=== PATIENT | male | born 1975 | race Caucasian/White ===

== ENCOUNTER 2016-07-03 12:33 | Observation (INO) ==
[2016-07-03] MEDS ORDERED: Aspirin 81 MG TAB.CHEW PO ONE (12:59)
[2016-07-03] MEDS ORDERED: Nitroglycerin 0.4 MG TAB.SUBL SL ONE (12:59)
--- NOTE | 2016-07-03 13:03 | Emergency Department Note ---
Disposition Clinical Impression: Chest pain Qualifiers: Chest pain type: unspecified Qualified Code(s): R07.9 - Chest pain, unspecified Disposition: Admitted As Inpatient Condition: Good Time of Disposition: 16:03 Chest Pain HPI - General Chief Complaint: ED Chest Pain Stated Complaint: CHEST PAIN Time Seen by Provider: 07/03/16 12:50 Source: patient Limitations: no limitations Vital Signs Reviewed: Yes Nursing Notes Reviewed: Yes - History of Present Illness HPI Narrative: 41-year-old male past history hypertension presents ED for chest pain. States is been ongoing constant chest pain in the center of his chest for past 3 days. He denies any radiation of the pain. Reports as if someone is digging a bat into his chest. Denies any associated symptoms such as diaphoresis, shortness of breath, or vomiting. Sometimes it is worse with exertion. Reports recently being evaluated at [facility] for similar symptoms. At that time morphine and nitro did help relieve the pain. He denies any further workup such as a stress test or heart catheterization. Denies any recent illness, fever, cough, shortness of breath, nausea, vomiting. Reports a strong family history and his father with a bypass age 45. Duration: constant Onset: during rest Pain Location: left chest Severity: moderate Severity scale (1-10): 8 Pain Radiation: none Improves with: nothing Worsens with: nothing Associated symptoms: Reports: dyspnea. Denies: nausea, vomiting, diaphoresis, palpitations, fever Treatments prior to arrival chest pain: none - Related Data Home Medications Medication Instructions Recorded Confirmed TraZODone 50 mg PO HS PRN 07/03/16 07/03/16 Allergies Allergy/AdvReac Type Severity Reaction Status Date / Time No Known Allergies Allergy Verified 07/23/15 18:14 All systems ED: reviewed and negative except as stated. Constitutional: Denies: fever, chills Cardiovascular: Reports: chest pain. Denies: palpitations, dyspnea on exertion Respiratory: Denies: cough, dyspnea Gastrointestinal: Denies: abdominal pain, nausea, vomiting, diarrhea Genitourinary: Denies: urgency, dysuria Integumentary: Denies: rash, abrasion Neurological: Denies: headache, weakness Chest Pain PMH - Past Medical History Medical history: Reports: hypertension Psychiatric history: Reports: no psych history - Social History Smoking Status: Never smoker Alcohol use: Reports: none Drug use: Reports: none Physical Exam - General Limitations: no limitations General appearance: alert, in no apparent distress, anxious, obese - Head Head exam: atraumatic, normocephalic, normal inspection - Eye Eye exam: Present: normal appearance, PERRL, EOMI - ENT ENT exam: normal exam, normal oropharynx, mucous membranes moist - Neck Neck exam: Present: normal inspection, full ROM, trachea midline - Chest Chest inspection: Present: normal inspection, symmetric chest wall rise - Respiratory Respiratory exam: Present: normal lung sounds bilaterally. Absent: respiratory distress, wheezes - Cardiovascular Cardiovascular exam: Present: regular rate, normal rhythm, normal heart sounds - Abdominal Exam Abdominal exam: Present: soft, Non-Tender, normal bowel sounds. Absent: tenderness, distention, guarding, rebound, rigidity - Extremities Exam Extremities exam: Present: normal inspection, full ROM, normal capillary refill. Absent: tenderness, pedal edema, calf tenderness - Neurological Exam Neurological exam: Present: alert, oriented X3 - Psychiatric Psychiatric exam: Present: normal affect, normal mood - Skin Skin exam: Present: warm, dry, intact, normal color Course Course Narrative: 41-year-old male past medical history hypertension, obesity presents to the ED for recurrent chest pain. Reports this has been ongoing for past 3 days, he was recently admitted for similar things at [facility] however did not receive a full cardiac workup. He has been having constant external chest pain without radiation. Blood pressure here stable at 144/94 He is not describing a tearing chest pain radiating to the back suggesting aortic complications. His BP has been well controlled and is normal here. Heart is regular rate and rhythm. Bilateral radial pulses without significant difference. Will workup for ACS. Patient is in agreement with plan. - Reevaluation(s) Reevaluation #1: Troponin 0.2. Labs are otherwise unremarkable. He continues to have recurrent chest pain despite 2 doses of SL Nitro along with tylenol and GI cocktail. EKG shows some nonspecific ST-T changes. HEART score is 3 however due to his lack of outpatient follow up and strong cardiac family history recommend admission for chest pain R/O ACS. He has no prior LHC or stress test. Impression is chest pain R/O ACS. Time: 16:55 - Consultations Consultation #1: Spoke with Shelley, hospitalistbrenna to admit for chest pain r/o ACS Time: 16:04 Vital Signs Temperature 97.2 F L 07/03/16 12:37 Pulse Rate 90 07/03/16 12:37 Respiratory Rate 18 07/03/16 12:37 Blood Pressure 144/94 07/03/16 12:37 O2 Sat by Pulse Oximetry 97 07/03/16 12:37 Temperature 97.2 F L 07/03/16 12:37 Pulse Rate 93 07/03/16 16:30 Respiratory Rate 19 07/03/16 16:55 Blood Pressure 153/85 07/03/16 16:55 O2 Sat by Pulse Oximetry 98 07/03/16 16:30 Oxygen Delivery Oxygen Delivery Room Air Chest Pain - Medical Records Medical records reviewed: Yes I reviewed the patient's medical records. - Lab Data Lab results reviewed: Yes I reviewed the patient's lab results. Result diagrams: 07/03/16 13:08 07/03/16 13:08 Lab Results 07/03/16 07/03/16 07/03/16 Range/Units 13:08 13:08 13:08 WBC 8.2 (4.3-11.1) K/mcL RBC 4.93 (4.19-5.50) M/mcL Hgb 15.4 (12.9-16.9) g/dL Hct 44.4 (37.5-50.1) % MCV 90.1 (83.0-100.0) fL MCH 31.2 (28.0-33.3) pg MCHC 34.7 (31.6-35.5) g/dL RDW 12.7 (11.5-14.5) % Plt Count 236 (140-400) K/mcL MPV 9.6 (9.4-12.4) fL Immature Gran % 0.4 (0-4) % Seg Neutrophils % 63.5 % Lymphocytes % 28.6 % Monocytes % 5.9 % Eosinophils % 1.2 % Basophils % 0.4 % Neutrophils # 5.2 (1.6-8.9) K/mcL Lymphocytes # 2.3 (0.6-4.6) K/mcL Monocytes # 0.5 (0.0-1.3) K/mcL Eosinophils # 0.1 (0.0-0.6) K/mcL Basophils # 0.0 (0.0-0.2) K/mcL Sodium 138 (136-145) mEq/L Potassium 4.6 H (3.5-4.5) mEq/L Chloride 104 (98-109) mEq/L Carbon Dioxide 27 (19-29) mEq/L BUN 15 (8-26) mg/dL Creatinine 1.13 (0.72-1.25) mg/dL Est GFR ( Amer) > 60 (> 60) Est GFR (Non-Af Amer) > 60 (> 60) BUN/Creatinine Ratio 13 (6-26) Glucose 99 (70-99) mg/dL Calculated Osmolality 287 (280-300) Calcium 9.1 (8.6-10.8) mg/dL Troponin I 0.02 (0-0.03) ng/mL - Radiology Data Radiology results reviewed: Yes I reviewed the patient's radiology results. Chest X-Ray 07/03/16 12:59 IMPRESSION: No acute cardiopulmonary disease. D/ / 07/03/2016 14:12:09 Shaheed Donaldson MD / traci Interpreting Provider: Shaheed Donaldson MD - EKG Data EKG attestation: Yes I reviewed and interpreted this EKG. EKG shows normal: sinus rhythm Rate: normal Rhythm: NSR When compared to previous EKG there are: no significant changes Interpretation: nonspecific ST-T wave changes Heart Score - Score History: Slightly Suspicious EKG: Non Specific repolarisation Disturbance Age: Less than 45 Risk Factors: Equal/Greater than 3 risk factor or history of atherosclerotic disease Troponin: Less than normal limit HEART Score Total: 3 Attestation Statement - Attestation Attestation: I examined this patient and my medical decision-making was reviewed with the COMMUNICATIONS STRATEGIST/PA/Advanced Practice Nurse/Resident Physician. I agree with the documented findings, disposition and treatment plan as described except to the extent set forth below. 41-year-old male. CT because her throat is pink. He has had chest pain nonstop for the past 3 days. Cannot describe or relate any provoking factors. He was recently admitted overnight to another facility and discharged in the morning with a diagnosis of gastritis. Pain is continued prompting him to come to the ED. He denies exertional provocation samples. Pain continues he wanted to rest. No diaphoresis but does complain of nausea and dyspnea. Patient's father had an OR at age 45. He is a nonsmoker with no known risk factors. Morbidly obese male in no apparent distress. Oropharynx is clear mucous membranes moist. Neck supple. Chest clear to auscultation bilaterally. Chest wall is nontender. Cardiac exam regular without rubs or gallops. Abdomen soft nondistended nontender Extremities warm and dry without asymmetric edema. Initial EKG with nonspecific changes. Chest x-ray and labs are unremarkable. He received nitroglycerin sublingual with mild improvement of his pain. He is very anxious with a sense of impending doom. He is very fearful of going home concerned that he is having a cardiac crisis. Hospitalist has agreed to admit to the hospital for further observation and workup.
[2016-07-03 13:23] LABS: Basophils % 0.4 %; Eosinophils # 0.1 K/mcL (0.0-0.6); Eosinophils % 1.2 %; Hematocrit 44.4 % (37.5-50.1); Hemoglobin 15.4 g/dL (12.9-16.9); Immature Granulocytes % 0.4 % (0-4); Lymphocytes # 2.3 K/mcL (0.6-4.6); Lymphocytes % 28.6 %; Mean Corpuscular HGB Conc 34.7 g/dL (31.6-35.5); Mean Corpuscular Hemoglobin 31.2 pg (28.0-33.3); Mean Corpuscular Volume 90.1 fL (83.0-100.0); Mean Platelet Volume 9.6 fL (9.4-12.4); Monocytes # 0.5 K/mcL (0.0-1.3); Monocytes % 5.9 %; Neutrophils # 5.2 K/mcL (1.6-8.9); Platelet Count 236 K/mcL (140-400); Red Blood Count 4.93 M/mcL (4.19-5.50); Red Cell Distribution Width 12.7 % (11.5-14.5); Segmented Neutrophils % 63.5 %
[2016-07-03 13:34] LABS: BUN/Creatinine Ratio 13 (6-26); Blood Urea Nitrogen 15 mg/dL (8-26); Calcium 9.1 mg/dL (8.6-10.8); Carbon Dioxide 27 mEq/L (19-29); Chloride 104 mEq/L (98-109); Glucose 99 mg/dL (70-99); Osmolality,Calculated 287 (280-300); Potassium 4.6 mEq/L (3.5-4.5); Sodium 138 mEq/L (136-145); eGFR For African Americans > 60 (> 60); eGFR For Non-African Americans > 60 (> 60)
[2016-07-03] MEDS ORDERED: GI Cocktail 40 ML EACH PO ONE (14:21)
[2016-07-03] MEDS: Nitroglycerin 0.4 MG TAB.SUBL SL PRN ×2 (15:00→21:27)
[2016-07-03] MEDS ORDERED: *HR* Morphine 2 MG/ML SYRINGE IVP ONE (17:33)
[2016-07-03] MEDS ORDERED: Naloxone 0.4 MG/ML INJ IVP PRN (21:25)
[2016-07-03] MEDS ORDERED: Pantoprazole 40 MG VIAL IVP STA (21:25)
[2016-07-03] MEDS ORDERED: Mag Hydrox/Al Hydrox/Simeth 30 ML UDC PO PRN (21:25)
[2016-07-03] MEDS ORDERED: Benzonatate 100 MG CAPSULE PO PRN (21:25)
[2016-07-03] MEDS ORDERED: *HR* Promethazine 25 MG/ML VIAL IVP PRN (21:25)
[2016-07-03] MEDS ORDERED: *HR* Metoprolol 5 MG/5 ML VIAL IVP PRN (21:25)
[2016-07-03] MEDS ORDERED: Acetaminophen 325 MG TABLET PO PRN (21:25)
[2016-07-03] MEDS ORDERED: 0.9 % Sodium Chloride 1,000 ML IVC SCH (21:30)
[2016-07-03] MEDS: Melatonin 3 MG TABLET PO SCH (21:58)
[2016-07-03] MEDS: *HR* LORazepam 0.5 MG TABLET PO SCH (21:59)
[2016-07-03] MEDS: *HR* Morphine 2 MG/ML SYRINGE IVP PRN (22:03)
[2016-07-03] MEDS: *HR* Enoxaparin 30 MG/0.3 ML SYRINGE SQ SCH (22:07)
[2016-07-03 22:45] LABS: INR 1.2; Prothrombin Time 12.6 Seconds (9.4-12.1)
[2016-07-03 22:47] LABS: VBG HCO3 29.2 mEq/L (21-27); VBG PH 7.42 pH Units (7.32-7.42)
[2016-07-03 22:48] LABS: Activated Partial Thrombo Time 31.1 Seconds (26.0-36.0)
[2016-07-03 22:54] LABS: Phosphorous 3.9 mg/dL (2.3-4.7)
[2016-07-03 22:58] LABS: Ionized Calcium 1.12 mmol/L (1.15-1.35)
[2016-07-04] MEDS: *HR* OxyCODONE Immed Rel 5 MG TABLET PO PRN ×3 (00:27→21:06)
[2016-07-04 00:49] LABS: ABG Base Excess 1.7 mEq/L (-2.0 to 3.0); ABG HCO3 26.6 mEQ/L (21-27); ABG Oxygen Saturation 94 % (95-98); ABG PCO2 42 mmHg (35-45); ABG PH 7.41 pH Units (7.32-7.45); ABG PO2 72 mmHg (85-104); ABG TCO2 27.9 mEq/L (20-26); Blood Gas FiO2 21 %
[2016-07-04] MEDS: traZODone 50 MG TABLET PO PRN ×2 (03:27→21:06)
--- NOTE | 2016-07-04 03:48 | Internal Med History&Physical ---
<Roma Goyal - Last Filed: 07/04/16 04:15> Date of Encounter: 07/04/16 Time of Encounter: 03:46 Assessment and Plan (1) Chest pain Current visit: Yes Status: Acute Patient presented with constant chest pain for 3 days. EKG shows normal sinus rhythm, no ST segment elevation or T wave inversions suggestive of ischemia. However, due to patient's obesity and family history, ACS rule out was appropriate. 1. Trend troponins 2. ECHO 3. Pharmacological stress test 4. Nitro for chest pain, Morphine for chest pain not resolving 5. Start ASA, b-leno and statin 6. Cardiac monitoring Qualifiers: Chest pain type: unspecified Qualified Code(s): R07.9 - Chest pain, unspecified (2) Hypoxia Current visit: Yes Status: Acute Patient with O2 saturation of 94% on RA with no history of pulmonary disease. He is obese and the hypoxia could be secondary to poor inspiratory effort. Will do a atrial blood gas. Patient will likely require further testing including PFT and sleep study looking for obesity hyperventilation syndrome or YASH. 1. Continuous pulse ox 2. Supplemental O2 as needed 3. Atrial blood gas (3) History of hypertension Current visit: Yes Status: Acute Patient reports history of HTN treated with medications. He has not been taking blood pressures here. Initial blood pressure here were in the 150s/86 and then came down to 130/82. Will monitor blood pressure. Patient may require starting medication for blood pressure management if indicated. 1. Monitor blood pressure (4) Obesity, Class III, BMI 40-49.9 (morbid obesity) Current visit: Yes Status: Acute Patient with significatn obesity and chest pain. He does not smoke. Will check labs to evaluate for a metabolic syndrome picture or other risk factors associated with his obesity. 1. A1c 2. Lipid panel (5) DVT prophylaxis Current visit: Yes Status: Acute Lovenox for DVT prophylaxis. Internal Medicine - H&P: HPI Admitted From: Home Plans for Post Hospital Care: Home History of present illness: Mr. Rodriguez is a 41 year old male with PMH of HTN, chronic back pain and obesity who presents with 3 days of chest pain. Patient reports that 3 days ago he had a sharp, shooting pain in the center of his chest 3 days ago that woke him from sleep. He tried taking ibuprofen and trazadone to go back to sleep and then a few hours later the same sharp pain woke him up again from sleep. The next morning he was driving and he had the sharp pain and crushing pressure that radiated down his left arm with associated diaphoresis and nausea. He went to an outside facility where he was initially admitted for chest pain. He says that they did not do any testing and was told it was gas. He reports that he tried to deal with the pain but could not so he came to the [place] ED. He currently says the pain is located in the center of his chest and describes it as a deep pressure with occasional sharp shooting pains. The pain can get worse with exertion. When the pain is really bad he reports associated radiation to the left sie of his chest, nausea, shortness of breath and diaphoresis. Patient denies fever/chills, headache, changes in vision, abdominal pain, changes in bowel or bladder function He denies any history of similar pain but reports that he has a strong family history of cardiac disease including a brother who had a cardiac bypass at age 45. Patient reports a 2 week episode of BL LE edema several months ago - he describes significant pitting edema. In our ED, patient was afebrile. HR, BP and RR all within normal limits. Oxygenation saturation was 94% on RA. He had an initial troponin of 0.02, remainder of labs within normal limits. He was given nitro x 2, tylenol and a GI cocktail and reported minimal relief. On exam, patient was awake and alert, in no acute distress. He was laying comfortably on the bed. Heart was regular rate and rhythm, no mumrus/rubs/ gallops. Lungs were clear to auscultation bilaterally with no crackles or wheezing. Patient is obese. Abdomen soft, non-tender. No pedal edema. Pain is not reproducible with palpation or with deep breaths. Past Med Surg Social Fam HX - Past Medical History Medical history: hypertension Psychiatric history: no psych history - Past Surgical History Surgical History: no surgical history - Social History Smoking Status: Never smoker Smokeless Tobacco Status: No Alcohol use: none Drug use: none - Family History Father Living Status: Still Living Hx Family Cardiac Disorders: Yes (open heartx3) Internal Medicine - H&P: Meds TraZODone 50 mg PO HS PRN 07/03/16 [History] Allergies No Known Allergies Allergy (Verified 07/23/15 18:14) All Systems PM: A 10-system review of systems was performed and is negative for pertinent findings except as documented above in the HPI. - Constitutional Constitutional: no chills, no fever(s), no lethargy, no weakness - EENT Eyes: no blurry vision, no change in vision - Cardiovascular Cardiovascular ROS IM: chest pain, diaphoresis, no dyspnea on exertion, no edema , no irregular heart rhythm, no lightheadedness, no palpitations, no syncope - Respiratory Respiratory: dyspnea, no cough, no wheezing, no chest congestion - Gastrointestinal Gastrointestinal: no abdominal pain, no constipation, no diarrhea, no heartburn , no hematochezia, no melena, no nausea, no vomiting - Genitourinary Genitourinary ROS male: no dysuria, no urinary frequency, no urinary hesitancy, no urinary incontinence - Musculoskeletal Musculoskeletal ROS IM: back pain - Neurological Neurological ROS: no confusion, no dizziness, no headache(s), no lack of coordination, no loss of vision - Constitutional Vitals: Temp Pulse Resp BP Pulse Ox 98.0 F 84 16 116/72 93 L 07/04/16 03:33 07/04/16 03:33 07/04/16 03:33 07/04/16 03:33 07/04/16 03:33 General appearance: Present: A&O X 3, no acute distress, obese, answers questions appropriately - Head Head exam: Present: atraumatic, normal inspection, normocephalic - Eye Eye exam: Present: EOMI, normal appearance - ENT ENT exam: Present: mucous membranes moist, normal exam - Respiratory Respiratory exam: Present: CTAB. Absent: prolonged expiratory phase, respiratory distress, wheezes - Cardiovascular Cardiovascular exam: Present: RRR - GI/Abdominal GI/Abdominal exam: Present: normal bowel sounds, soft. Absent: guarding, rebound, rigid, tenderness - Extremities Exam Extremities exam: Present: full ROM. Absent: pedal edema Internal Med - H&P Results - Labs CBC & Chem 7: 07/03/16 13:08 07/03/16 13:08 Labs: Cardiac Enzymes 07/03/16 Range/Units 22:28 Troponin I 0.00 (0-0.03) ng/mL - ABG Interpretation ABG results: 07/03/16 07/04/16 22:28 00:35 ABG pH 7.41 ABG pCO2 42 ABG pO2 72 L ABG HCO3 26.6 ABG Total CO2 27.9 H ABG O2 Saturation 94 L ABG Base Excess 1.7 VBG pH 7.42 VBG pCO2 45 VBG pO2 84 H VBG HCO3 29.2 H <Carlos Munoz - Last Filed: 07/04/16 05:37> Date of Encounter: 07/03/16 Time of Encounter: 21:00 Assessment and Plan (1) Chest pain, rule out acute myocardial infarction Current visit: Yes Status: Acute . (2) Chest pain with low risk of acute coronary syndrome Current visit: Yes Status: Acute . (3) Anxiety about health Current visit: Yes Status: Acute . (4) Anxiety as acute reaction to exceptional stress Current visit: Yes Status: Acute . (5) Primary snoring Current visit: Yes Status: Chronic . (6) Sleep disorder Current visit: Yes Status: Chronic . (7) Sleep disorder due to a general medical condition, insomnia type Current visit: Yes Status: Chronic . (8) Sleep disorder due to a general medical condition, hypersomnia type Current visit: Yes Status: Chronic . (9) Sleep disorder breathing Current visit: Yes Status: Chronic . (10) Reactive hypertension Current visit: Yes Status: Acute . (11) Morbid (severe) obesity due to excess calories Current visit: Yes Status: Chronic . (12) Hypoventilation associated with obesity Current visit: Yes Status: Acute . (13) Physical deconditioning Current visit: Yes Status: Chronic . (14) Hypoxia Current visit: Yes Status: Acute (15) Obesity, Class III, BMI 40-49.9 (morbid obesity) Current visit: Yes Status: Chronic (16) Hyperkalemia Current visit: Yes Status: Acute . (17) Dyspepsia and disorder of function of stomach Current visit: Yes Status: Acute . (18) Severe anxiety about hospitalization Current visit: Yes Status: Acute . Internal Medicine - H&P: HPI Chief complaint: Chest pain Admitted From: Emergency Dept History of present illness: Mr. Rodriguez is a 41 year old male no significant chronic medical concerns or treatments admitted to [facility] via the emergency department when he presented with a chief complaint of 3-days of unremitting chest pain. The patient was visited and interviewed and examined. I examined this patient and my medical decision-making was reviewed with the Resident Physician. For this encounter, I have reviewed the documentation, treatment plan, and medical decision making. I agree with the documented findings, disposition and treatment plan as described except to the extent set forth below. Cumulative laboratory and radiographic database was reviewed and considered and discussed. Given the patient's presenting concerns, past medical history, clinical findings and symptoms, he is admitted at this time to undergo further evaluation and disposition. Orders were written as per the computerized physician order processing specialist system........................ Past Med Surg Social Fam HX - Past Medical History Source: patient, old records reviewed Medical history: hypertension, other (Morbid obesity. Sleep disorder.) Psychiatric history: anxiety, other - Past Surgical History Surgical History: non-contributory - Social History Occupational status: unemployed Current living situation: Home - Independent Activity Level: Independent ambulation, Mostly sedentary Recent Out of Country Travel Within the Last 8 Weeks: No Exposure or Possible Exposure to Illness During Travel: No All Systems PM: A 10-system review of systems was performed and is negative for pertinent findings except as documented above in the HPI. - Constitutional Vitals: Temp Pulse Resp BP Pulse Ox 98.0 F 84 16 116/72 93 L 07/04/16 03:33 07/04/16 03:33 07/04/16 03:33 07/04/16 03:33 07/04/16 03:33 Internal Med - H&P Results - Labs CBC & Chem 7: 07/03/16 13:08 07/03/16 13:08 Labs: Cardiac Enzymes 07/03/16 Range/Units 22:28 Troponin I 0.00 (0-0.03) ng/mL Urine 07/04/16 Range/Units 04:00 Urine Color Yellow (Yellow) Urine Clarity Clear (Clear) Urine pH 5.5 (5.0-8.0) pH Units Ur Specific [place] 1.025 (1.010-1.025) Urine Protein Negative (Neg-Trace) mg/dL Urine Glucose (UA) Normal (Normal) mg/dL - ABG Interpretation ABG results: 07/03/16 07/04/16 22:28 00:35 ABG pH 7.41 ABG pCO2 42 ABG pO2 72 L ABG HCO3 26.6 ABG Total CO2 27.9 H ABG O2 Saturation 94 L ABG Base Excess 1.7 VBG pH 7.42 VBG pCO2 45 VBG pO2 84 H VBG HCO3 29.2 H - Impressions Vital Signs Temp Pulse Resp BP Pulse Ox 07/04/16 03:33 98.0 F 84 16 116/72 93 L 07/04/16 00:00 97.5 F L 101 14 130/82 94 L 07/03/16 20:24 97.3 F L 86 18 134/86 94 L 07/03/16 17:17 97.5 F L 73 18 153/113 92 L 07/03/16 16:55 19 153/85 07/03/16 16:30 93 153/85 98 07/03/16 14:16 74 20 127/73 93 L 07/03/16 13:25 74 10 147/107 95 07/03/16 12:53 80 18 129/101 96 07/03/16 12:37 97.2 F L 90 18 144/94 97 Intake and Output 07/03/16 07/03/16 07/04/16 15:59 23:59 07:59 Output Total 200 / 200 Balance -200 / -200 Output: Urine 200 / 200 Other: Weight 147.418 kg 145.15 kg 145.875 kg Patient Weight 07/04/16 23:59 Weight 145.875 kg Short CBC 07/03/16 Range/Units 13:08 WBC 8.2 (4.3-11.1) K/mcL Hgb 15.4 (12.9-16.9) g/dL Hct 44.4 (37.5-50.1) % Plt Count 236 (140-400) K/mcL Neutrophils # 5.2 (1.6-8.9) K/mcL BMP 07/03/16 Range/Units 13:08 Sodium 138 (136-145) mEq/L Potassium 4.6 H (3.5-4.5) mEq/L Chloride 104 (98-109) mEq/L Carbon Dioxide 27 (19-29) mEq/L BUN 15 (8-26) mg/dL Creatinine 1.13 (0.72-1.25) mg/dL Glucose 99 (70-99) mg/dL Calcium 9.1 (8.6-10.8) mg/dL Cardiac Enzymes 07/03/16 07/03/16 Range/Units 22:28 13:08 Troponin I 0.00 0.02 (0-0.03) ng/mL Urine 07/04/16 Range/Units 04:00 Urine Color Yellow (Yellow) Urine Clarity Clear (Clear) Urine pH 5.5 (5.0-8.0) pH Units Ur Specific [place] 1.025 (1.010-1.025) Urine Protein Negative (Neg-Trace) mg/dL Urine Glucose (UA) Normal (Normal) mg/dL 07/03/16 07/04/16 22:28 00:35 ABG pH 7.41 ABG pCO2 42 ABG pO2 72 L ABG HCO3 26.6 ABG Total CO2 27.9 H ABG O2 Saturation 94 L ABG Base Excess 1.7 VBG pH 7.42 VBG pCO2 45 VBG pO2 84 H VBG HCO3 29.2 H Abnormal lab results PT 12.6 Seconds (9.4-12.1) H 07/03/16 22:28 ABG pO2 72 mmHg (85-104) L 07/04/16 00:35 ABG Total CO2 27.9 mEq/L (20-26) H 07/04/16 00:35 ABG O2 Saturation 94 % (95-98) L 07/04/16 00:35 VBG pO2 84 mmHg (25-40) H 07/03/16 22:28 VBG HCO3 29.2 mEq/L (21-27) H 07/03/16 22:28 Potassium 4.6 mEq/L (3.5-4.5) H 07/03/16 13:08 Ionized Calcium 1.12 mmol/L (1.15-1.35) L 07/03/16 22:28 Urine Opiates Screen Positive ng/mL (Blgydv=765) H 07/04/16 04:00 Allergies Allergy/AdvReac Type Severity Reaction Status Date / Time No Known Allergies Allergy Verified 07/23/15 18:14 Laboratory Results WBC 8.2 K/mcL (4.3-11.1) 07/03/16 13:08 RBC 4.93 M/mcL (4.19-5.50) 07/03/16 13:08 Hgb 15.4 g/dL (12.9-16.9) 07/03/16 13:08 Hct 44.4 % (37.5-50.1) 07/03/16 13:08 MCV 90.1 fL (83.0-100.0) 07/03/16 13:08 MCH 31.2 pg (28.0-33.3) 07/03/16 13:08 MCHC 34.7 g/dL (31.6-35.5) 07/03/16 13:08 RDW 12.7 % (11.5-14.5) 07/03/16 13:08 Plt Count 236 K/mcL (140-400) 07/03/16 13:08 MPV 9.6 fL (9.4-12.4) 07/03/16 13:08 Immature Gran % 0.4 % (0-4) 07/03/16 13:08 Seg Neutrophils % 63.5 % 07/03/16 13:08 Lymphocytes % 28.6 % 07/03/16 13:08 Monocytes % 5.9 % 07/03/16 13:08 Eosinophils % 1.2 % 07/03/16 13:08 Basophils % 0.4 % 07/03/16 13:08 Neutrophils # 5.2 K/mcL (1.6-8.9) 07/03/16 13:08 Lymphocytes # 2.3 K/mcL (0.6-4.6) 07/03/16 13:08 Monocytes # 0.5 K/mcL (0.0-1.3) 07/03/16 13:08 Eosinophils # 0.1 K/mcL (0.0-0.6) 07/03/16 13:08 Basophils # 0.0 K/mcL (0.0-0.2) 07/03/16 13:08 PT 12.6 Seconds (9.4-12.1) H 07/03/16 22:28 INR 1.2 07/03/16 22:28 APTT 31.1 Seconds (26.0-36.0) 07/03/16 22:28 ABG pH 7.41 pH Units (7.32-7.45) 07/04/16 00:35 ABG pCO2 42 mmHg (35-45) 07/04/16 00:35 ABG pO2 72 mmHg (85-104) L 07/04/16 00:35 ABG HCO3 26.6 mEQ/L (21-27) 07/04/16 00:35 ABG Total CO2 27.9 mEq/L (20-26) H 07/04/16 00:35 ABG O2 Saturation 94 % (95-98) L 07/04/16 00:35 ABG Base Excess 1.7 mEq/L (-2.0 to 3.0) 07/04/16 00:35 VBG pH 7.42 pH Units (7.32-7.42) 07/03/16 22:28 VBG pCO2 45 mmHg (41-51) 07/03/16 22:28 VBG pO2 84 mmHg (25-40) H 07/03/16 22:28 VBG HCO3 29.2 mEq/L (21-27) H 07/03/16 22:28 Blood Gas Modality RA 07/04/16 00:35 Inspired O2 21 % 07/04/16 00:35 Sodium 138 mEq/L (136-145) 07/03/16 13:08 Potassium 4.6 mEq/L (3.5-4.5) H 07/03/16 13:08 Chloride 104 mEq/L (98-109) 07/03/16 13:08 Carbon Dioxide 27 mEq/L (19-29) 07/03/16 13:08 BUN 15 mg/dL (8-26) 07/03/16 13:08 Creatinine 1.13 mg/dL (0.72-1.25) 07/03/16 13:08 Est GFR ( Amer) > 60 (> 60) 07/03/16 13:08 Est GFR (Non-Af Amer) > 60 (> 60) 07/03/16 13:08 BUN/Creatinine Ratio 13 (6-26) 07/03/16 13:08 Glucose 99 mg/dL (70-99) 07/03/16 13:08 Calculated Osmolality 287 (280-300) 07/03/16 13:08 Calcium 9.1 mg/dL (8.6-10.8) 07/03/16 13:08 Ionized Calcium 1.12 mmol/L (1.15-1.35) L 07/03/16 22:28 Phosphorus 3.9 mg/dL (2.3-4.7) 07/03/16 22:28 Magnesium 2.0 mg/dL (1.6-2.6) 07/03/16 22:28 Troponin I 0.00 ng/mL (0-0.03) 07/03/16 22:28 Amylase 52 Units/L (25-125) 07/03/16 22:28 Lipase 38 Units/L (8-78) 07/03/16 22:28 Urine Color Yellow (Yellow) 07/04/16 04:00 Urine Clarity Clear (Clear) 07/04/16 04:00 Urine pH 5.5 pH Units (5.0-8.0) 07/04/16 04:00 Ur Specific [place] 1.025 (1.010-1.025) 07/04/16 04:00 Urine Protein Negative mg/dL (Neg-Trace) 07/04/16 04:00 Urine Glucose (UA) Normal mg/dL (Normal) 07/04/16 04:00 Urine Ketones Negative mg/dL (Negative) 07/04/16 04:00 Urine Blood Negative (Negative) 07/04/16 04:00 Urine Nitrite Negative (Negative) 07/04/16 04:00 Urine Bilirubin Negative (Negative) 07/04/16 04:00 Urine Urobilinogen Normal mg/dL (Normal) 07/04/16 04:00 Ur Leukocyte Esterase Negative (Negative) 07/04/16 04:00 Urine Opiates Screen Positive ng/mL (Omsvxg=198) H 07/04/16 04:00 Ur Barbiturates Screen Negative ng/mL (Buarpf=487) 07/04/16 04:00 Ur Phencyclidine Scrn Negative ng/mL (Cutoff=25) 07/04/16 04:00 Ur Amphetamines Screen Negative ng/mL (Bevxrb=3467) 07/04/16 04:00 U Benzodiazepines Scrn Negative ng/mL (Qzirlv=067) 07/04/16 04:00 Urine Cocaine Screen Negative ng/mL (Cutoff= 300) 07/04/16 04:00 U Marijuana (THC) Screen Negative ng/mL (Cutoff = 50) 07/04/16 04:00 Impressions Chest X-Ray 07/03/16 12:59 IMPRESSION: No acute cardiopulmonary disease. D/ / 07/03/2016 14:12:09 Shaheed Donaldson MD / traci Interpreting Provider: Shaheed Donaldson MD - Attending Attestation My signature below is to certify that this patient is under my care and that I, or the Resident Physician working with me, has had a [id number] encounter with this patient. Plan of care has been reviewed and discussed in detail with the patient. Questions addressed. Advance care directive discussion briefly addressed. Patient does not declare any restrictions at this time. Outpatient medication schedules will be reviewed, confirmed and facilitated as appropriate. Reconciliation of home treatments including adjustments, substitutions and reintroduction into the treatment regimen will address necessary maintenance therapies for chronic pre-existing medical conditions. (He currently only declares trazodone as his ongoing medication utilized as needed for insomnia. He was also previously prescribed Lexapro to address his anxiety and depression but he discontinued this following completing only a months treatment and did not seek refill. Recommendation for outpatient referral to mental health outpatient clinic will be considered.) Smoke cessation counseling briefly addressed. The patient declares that he is a nonsmoker. Hospital course will be dependent on clinical findings, treatment response and potential consultative interventions. The patient is at risk for further acute clinical decline and morbidity given his presenting chief complaints and comorbidities. Condition is serious. Prognosis is cautiously optimistic. CODE STATUS is full.
[2016-07-04 04:17] LABS: Bilirubin,Urine Negative (Negative); Blood,Urine Negative (Negative); Clarity,Urine Clear (Clear); Color,Urine Yellow (Yellow); Glucose,Urine (UA) Normal (Normal); Ketones,Urine Negative (Negative); Leukocyte Esterase,Urine Negative (Negative); Nitrite,Urine Negative (Negative); PH,Urine 5.5 pH Units (5.0-8.0); Protein,Urine Negative (Neg-Trace); Specific Gravity,Urine 1.025 (1.010-1.025); Urobilinogen,Urine Normal (Normal)
[2016-07-04 04:36] LABS: Amphetamine Screen,Urine Negative ng/mL (Cutoff=1000); Barbiturate Screen,Urine Negative ng/mL (Cutoff=200); Benzodiazepines Screen,Urine Negative ng/mL (Cutoff=200); Cannabinoid Screen,Urine Negative ng/mL (Cutoff = 50); Cocaine Screen,Urine Negative ng/mL (Cutoff= 300); Opiate Screen,Urine Positive ng/mL (Cutoff=300); Phencyclidine Screen,Urine Negative ng/mL (Cutoff=25)
[2016-07-04] MEDS ORDERED: Calcium Gluconate 1,000 MG in D5% in Water 100 ML IVPB ONE (05:04)
[2016-07-04 05:47] LABS: Alanine Aminotransferase 60 Units/L (0-55); Albumin 3.3 g/dL (3.5-5.0); Alkaline Phosphatase 59 Units/L (38-126); Aspartate Amino Transferase 36 Units/L (5-34); BUN/Creatinine Ratio 17 (6-26); Bilirubin,Total 0.4 mg/dL (0.2-1.2); Blood Urea Nitrogen 18 mg/dL (8-26); C-Reactive Protein 16 mg/L (Less than 5); Calcium 8.5 mg/dL (8.6-10.8); Carbon Dioxide 26 mEq/L (19-29); Chloride 106 mEq/L (98-109); Chol/HDL Ratio 6.5 (0-4.9); Cholesterol 202 mg/dL (< 200); Globulin 3.3 g/dL (2.4-3.5); Glucose 119 mg/dL (70-99); HDL Cholesterol 31 mg/dL (40-59); LDL Cholesterol,Calculated 120 mg/dL (0-99); Osmolality,Calculated 293 (280-300); Potassium 4.3 mEq/L (3.5-4.5); Sodium 140 mEq/L (136-145); Total Protein 6.6 g/dL (6.0-8.3); Triglycerides 254 mg/dL (< 150); eGFR For African Americans > 60 (> 60); eGFR For Non-African Americans > 60 (> 60)
[2016-07-04 05:51] LABS: Hemoglobin A1C 5.1 %
[2016-07-04] MEDS: *HR* Enoxaparin 30 MG/0.3 ML SYRINGE SQ SCH ×2 (06:35→18:27)
[2016-07-04] MEDS: *HR* Morphine 2 MG/ML SYRINGE IVP PRN ×2 (06:41→18:27)
[2016-07-04] MEDS ORDERED: Regadenoson 0.4 MG/5 ML SYRINGE IVP ONE (06:49)
[2016-07-04 07:34] LABS: Thyroid Stimulating Hormone 1.454 mcIU/mL (0.350-4.840)
[2016-07-04] MEDS: Famotidine 20 MG TABLET PO SCH ×2 (08:15→21:06)
[2016-07-04] MEDS: *HR* LORazepam 0.5 MG TABLET PO SCH ×4 (08:15→21:06)
[2016-07-04] MEDS: Aspirin 81 MG TAB.CHEW PO SCH (08:15)
--- NOTE | 2016-07-04 12:45 | Event Note ---
Date of Encounter: 07/04/16 Time of Encounter: 12:15 Patient seen and examined. On examination, patient resting supine in bed. Patient is endorsing constant chest pressure. He denies shortness of breath at this time. On examination, chest pain is not reproducible with palpation at this time. Patient's lungs are clear to auscultation bilaterally with good aeration. Chest x-ray negative. Urinalysis negative. Tox screen positive for opiates, OARRS report without current prescriptions. Mild hypotension noted, will continue to monitor. Patient requesting food, able to until midnight. Echocardiogram still pending. Second day of the stress test will be tomorrow and clinical outcomes depending upon stress test results. Morphine for chest pain. Patient endorsed worsening of his chest pain during the first part of the stress test today. Possible hypoxia noted per cardiology during the stress test, supplemental oxygenation initiated. ITS Impressions Chest X-Ray 07/03/16 12:59 IMPRESSION: No acute cardiopulmonary disease. D/ / 07/03/2016 14:12:09 Shaheed Donaldson MD / traci Interpreting Provider: Shaheed Donaldson MD
[2016-07-04] MEDS ORDERED: Perflutren Lipid Microsphere 1.3 ML in 0.9 % Sodium Chloride 8.7 ML IVP ONE (13:46)
[2016-07-04] MEDS ORDERED: Perflutren Lipid Microsphere 2 ML VIAL ONE (13:49)
--- NOTE | 2016-07-04 17:14 | Electrocardiograph Report ---
[address] [address] Test Date: 2016-07-03 Pat Name: Uche Rodriguez Department: 103 Room: 3B Gender: M Crester: : 1975 Requested By: Iftikhar Gonzales Order Number: [id number] Reading MD: Consuelo Urena Measurements Intervals [place] Rate: 79 P: 15 VA: 163 QRS: -2 QRSD: 98 T: 0 QT: 377 QTc: 411 Interpretive Statements SINUS RHYTHM POSSIBLE RIGHT VENTRICULAR CONDUCTION DELAY Electronically Signed On 07-04-2016 17:12:20 EST by Consuelo Urena
--- NOTE | 2016-07-04 18:15 | ECHO - Doppler Report ---
Echo with Imaging Enhancement Agent Name: Uche Rodriguez Date of Study: 07/04/2016 Date: 1975 Ht: 72.0 in Medical Record#: [id number] Age: 41 Wt: 321.0 lb Gender: Male BSA: 2.6 Order #: [id number] Location: [facility] Room #: 3B49 Reading Physician: Ryne Malik DO, DEVONTE, SEKOU JACOBSON Community Arts Worker: Hollie Sarkar Ordering Physician: Carlos Munoz MD Primary Physician: None Indications: ACS Impressions: LVEF 60-65%. Normal LV chamber size, wall thickness and function. Mild left ventricular diastolic dysfunction. Right ventricle was not well visualized. Grossly, it demonstrates normal function. No evidence of pulmonary hypertension. RVSP not well obtained due to inadequate TR jet. No obvious significant valvular dysfunction. Left Ventricular Wall Motion: Rest Echo Findings All wall segments showed normal motion. Findings: Study Quality * Technically sub-optimal due to body habitus. ECG Findings * Normal sinus rhythm. Left Ventricle * LVEF 60-65%. * Normal LV chamber size, wall thickness and function. * Mild left ventricular diastolic dysfunction. Right Ventricle * Right ventricle was not well visualized. Grossly, it demonstrates normal function. Left Atrium * Left atrium is at least mildly dilated. Right Atrium * Right atrium grossly appears mildly dilated. Interatrial Septum * Interatrial septum not well evaluated. Aortic Valve * Trileaflet aortic valve with normal function. * No aortic regurgitation. * No aortic stenosis. Mitral Valve * Normal mitral valve structure and function. * No mitral regurgitation. * No mitral stenosis. Tricuspid Valve * Normal tricuspid valve structure and function. * Trace tricuspid regurgitation. * No evidence of pulmonary hypertension. RVSP not well obtained due to inadequate TR jet. Pulmonic Valve * Pulmonic valve not well visualized. Aorta * Normally sized aortic root. Pericardium * The pericardium appears normal. IVC * The IVC is not well evaluated. Pulmonary Artery * Pulmonary artery not well visualized. History Hypertension Family History of CAD Contrast: Definity 1.3 ml in 8.7 ml of saline 3 ml. Measurements: BP: 122/ 87 2D Normal Values RVIDd: 3.30 cm <2.7 cm IVSd: 1.10 cm 0.6 - 1.0 cm LVIDd: 4.60 cm 3.7 - 5.6 cm LVPWd: 1.10 cm 0.6 - 1.1 cm LVIDs: 2.80 cm 1.5 - 3.6 cm AO: 2.40 cm < 4.0 cm LA: 4.40 cm 2.0 - 4.0cm %FS: 39.10 cm >25 % LA volume: 61 Mitral Valve Peak E:.91 m/sec Peak A:.80 m/sec E/A Ratio:1.1 Peak E' Lat Pavan:8.19 cm/s Peak E' Med Pavan:8.87 cm/s E/E' Lat Ratio:11.1 E/E' Med Ratio:10.3 Tricuspid Valve TV Regurg Peak Grad: 13.00mmHg TV Regurg Peak Pavan: 1.81m/sec Updated by Ryne Malik DO, DEVONTE, KAVON, SEKOU on 07/04/2016 6:09:43 PM electronically signed on 07/04/2016 6:10:11 PM with status of Final Wall Motion [place]: 1=Normal, 2=Hypokinesis, 3=Akinesis, 4=Dyskinesis, 5=Aneurysmal, 6=Hyperkinetic, X=Not Visualized (Blank)=Missing
[2016-07-04] MEDS: Melatonin 3 MG TABLET PO SCH (21:06)
[2016-07-05] MEDS: *HR* Morphine 2 MG/ML SYRINGE IVP PRN ×5 (03:23→17:32)
[2016-07-05] MEDS: *HR* OxyCODONE Immed Rel 5 MG TABLET PO PRN ×4 (04:44→17:31)
[2016-07-05] MEDS: *HR* Enoxaparin 30 MG/0.3 ML SYRINGE SQ SCH ×2 (06:08→17:32)
[2016-07-05] MEDS: Nitroglycerin 0.4 MG TAB.SUBL SL PRN (10:06)
[2016-07-05] MEDS: Aspirin 81 MG TAB.CHEW PO SCH (10:06)
[2016-07-05] MEDS: Famotidine 20 MG TABLET PO SCH (10:08)
[2016-07-05] MEDS: *HR* LORazepam 0.5 MG TABLET PO SCH ×3 (10:08→17:32)
--- NOTE | 2016-07-05 11:25 | Electrocardiograph Report ---
[place] [address] Test Date: 2016-07-04 Pat Name: Uche Rodriguez Department: 113 Room: 3B Gender: M Instructional Coordinator: : 1975 Requested By: Carlos Munoz Order Number: [id number] Reading MD: Ryne Malik DO Measurements Intervals [place] Rate: 82 P: 16 RI: 171 QRS: -9 QRSD: 114 T: 8 QT: 373 QTc: 412 Interpretive Statements SINUS RHYTHM Incomplete right bundle branch block Electronically Signed On 07-05-2016 11:23:20 EST by Ryne Malik DO
--- NOTE | 2016-07-05 15:06 | Nuclear Medicine Stress Report ---
Regadenoson Nuclear 2 day Name: Uche Rodriguez Date of Study: 07/04/2016 Date: 1975 Ht: 72.0 in Medical Record#: [id number] Age: 41 Wt: 325.0 lb Gender: Male Order #: [id number] Location: [facility] Room: [facility] Supervising Provider: Christian Torres CNP Reading Physician: Consuelo Urena DO Ordering Physician: Lupe Dumont CNP Primary Care Physician: None Stress Technologist: Екатерина Caputo RRT Gender Studies Professor: Tamy Unger Indications: Chest Pain Impression: Perfusion imaging was negative for ischemia or infarct. Pharmacologic ECG was negative for ischemia at the level of heart rate achieved. Patient described 6/10 chest pain prior to start of study, increasing to 9/10 with pharmacologic infusion. These are nondiagnostic complaints. Gated EF = >70%. History: Hypertension Stress Test Summary: Stress Test Type: Pharmacologic Regadenoson 0.4mg/5ml given IV Baseline Information: Initial Heart Rate: 82 Blood Pressure: 104/70 Stress Information: Test Terminated Due to (primary): As per protocol Maximum Blood Pressure: 100/68 Maximum Heart Rate: 95 Percent Maximum Heart Rate Achieved: 53 Double Product: 9500 METS Reached: 1 Symptoms: Chest pain Nuclear Summary: SPECT myocardial perfusion imaging using Tc99m Sestamibi given intravenously was performed at rest and following cardiac stress testing. The resting images were obtained following initial dose of 35.2 mCi. Following stress an additional dose of 35.8 mCi was given at peak exercise or 30 seconds post regadenoson infusion. Medication Given: Time Medication Dose Units Route Findings: Stress Note * Resting ECG demonstrated normal sinus rhythm with RV conduction delay. * Pharmacologic stress ECG is negative for ischemia at level of heart rate achieved. * No arrhythmias were noted during stress. * Patient had 6/10 chest pain prior to start, increasing to 9/10 chest pain during pharmacologic infusion. Hemodynamic responses * Normal hemodynamic responses to pharmacologic stress. Study Quality * Study quality is good. Gated EF > 70% * Gated EF > 70%. Left Ventricle * The left ventricle is not dilated. TID * No evidence of transient ischemic dilatation. Lung Uptake * There is no evidence of increase lung uptake. NORMALS * Normal wall motion. * Normal segmental perfusion in stress. * Normal Segmental Perfusion in rest. Updated by Consuelo Urena on 07/05/2016 2:59:07 PM electronically signed on 07/05/2016 3:01:01 PM with status of Final
[2016-07-05 15:32] VITALS: BP 111/72
--- NOTE | 2016-07-05 17:13 | Discharge Summary ---
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 07/05/16 [Rx] Allergies/Adverse Reactions: Allergies No Known Allergies Allergy (Verified 07/23/15 18:14) Procedures/tests Complete & Pending: Procedures Performed prior 72 hours Category Date Time Status NM hillary perf SPECT multi [NM] Routine Exams 07/03/16 22:53 Taken ECG 12 lead ECG [ECG] Routine Y 07/04/16 07:00 Completed EV echocardiogram w enhance Routine Y 07/04/16 21:26 Completed SP pharm nuclear stress Routine Y 07/04/16 07:40 Completed - Notes to Outpatient Provider Patient has a mild elevated liver function (AST 36, ALT 60), please a follow-up as outpatient Date of admission: 07/03/16 16:10 Primary care physician: PCP NO Consults: 07/03/16 21:26 Consult to Nurse Navigator [CONS] Routine Comment: Discharging clinician: Gila Cr Anticipated date of discharge: 07/05/16 - Patient Status Disposition: Home, Self-Care Condition: Good Functional capacity at discharge: independent ambulation Overall status at discharge: patient is progressing back to baseline - Discharge Instructions Follow Up With: NO,PCP [Primary Care Provider] - - Diet and Activity Activity: increase activity as tolerated Diet: low fat, low cholesterol Interval History: Mr. Rodriguez is a 41 year old male with PMH of HTN, chronic back pain and obesity who presents with 3 days of chest pain. Patient reports that 3 days ago he had a sharp, shooting pain in the center of his chest 3 days ago that woke him from sleep. He tried taking ibuprofen and trazadone to go back to sleep and then a few hours later the same sharp pain woke him up again from sleep. The next morning he was driving and he had the sharp pain and crushing pressure that radiated down his left arm with associated diaphoresis and nausea. He went to an outside facility where he was initially admitted for chest pain. He says that they did not do any testing and was told it was gas. He reports that he tried to deal with the pain but could not so he came to the [place] ED. He currently says the pain is located in the center of his chest and describes it as a deep pressure with occasional sharp shooting pains. The pain can get worse with exertion. When the pain is really bad he reports associated radiation to the left sie of his chest, nausea, shortness of breath and diaphoresis. Patient denies fever/chills, headache, changes in vision, abdominal pain, changes in bowel or bladder function He denies any history of similar pain but reports that he has a strong family history of cardiac disease including a brother who had a cardiac bypass at age 45. Patient reports a 2 week episode of BL LE edema several months ago - he describes significant pitting edema. In our ED, patient was afebrile. HR, BP and RR all within normal limits. Oxygenation saturation was 94% on RA. He had an initial troponin of 0.02, remainder of labs within normal limits. He was given nitro x 2, tylenol and a GI cocktail and reported minimal relief. On exam, patient was awake and alert, in no acute distress. He was laying comfortably on the bed. Heart was regular rate and rhythm, no mumrus/rubs/ gallops. Lungs were clear to auscultation bilaterally with no crackles or wheezing. Patient is obese. Abdomen soft, non-tender. No pedal edema. Pain is not reproducible with palpation or with deep breaths. Hospital course: Mr. Rodriguez is a 41 year old male was admitted for chest pain. Pain is constant in lower sternal and epigastric area. No responded to nitroglycerin. Patient was placed on continuous cardiac monitoring, serial troponin, echo and stress test. He has a negative chest x-ray, d-dimer negative. Echo result unremarkable. Stress test negative. EKG is reviewed and it is unremarkable. Patient has a recent cough and he has obesity, pain is at epigastric area, consider GERD. Will give patient PPI treatment trial. Patient will discharge home and follow-up as outpatient. I saw and examined the patient today. He is awake alert, oriented 3. Still complaining chest or epigastric area pain, 5/10. No wall tenderness. Vitals are stable. In no acute respiratory distress. Patient has a mild elevated liver function test (AST 36, ALT 60), he was told to follow up as outpatient. He has mild elevated cholesterol level, educated the patient to have a diet control, no statin because of abdominal liver function. - Time Spent with Patient Total time spent providing and/or coordinating discharge services: 40 min Greater than 30 minutes - Constitutional Vitals: Temp Pulse Resp BP Pulse Ox 97.9 F 84 16 111/72 99 07/05/16 15:29 07/05/16 15:29 07/05/16 15:29 07/05/16 15:29 07/05/16 15:29 General appearance: Present: A&O X 3, no acute distress, obese, answers questions appropriately - Head Head exam: Present: atraumatic, normocephalic - Eye Eye exam: Present: PERRL, conjuntiva pink, sclera anicteric Pupils: Present: PERRL - Neck Neck exam general surgery: Present: supple, trachea midline. Absent: lymphadenopathy - Respiratory Respiratory exam: Present: CTAB. Absent: accessory muscle use, rales, rhonchi, wheezes - Cardiovascular Cardiovascular exam: Present: RRR, +S1, +S2. Absent: diastolic murmur, gallop, rubs, systolic murmur - GI/Abdominal GI/Abdominal exam: Present: normal bowel sounds, soft, no peritoneal signs. Absent: distended, tenderness - Extremities Exam Extremities exam: Present: warm, radial pulses palpable and symetrical. Absent : calf tenderness, cyanotic, pedal edema - Neurological Exam Neurological exam: Present: CN II-XII intact, oriented X3, no focal deficits. Absent: pronater drift, facial droop, speech deficit - Skin Skin exam: Present: dry, intact - VTE Documentation of Mechanical Device: Graduated compression elastic hosiery
== END 2016-07-05 19:10 | disposition home or self-care (01) ==
LOC: 3BNU 12:33 → EMEROO 12:33 → SUATTDRO 16:10 → 3BNU 16:57
PROVIDERS: ADMIT Internal Medicine; ATTEND Internal Medicine